=== PATIENT | female | born 1985 | race African-American/Black ===

== ENCOUNTER 2019-02-15 08:31 | Emergency (ER) | payer OTHER, MEDICAID ==
[~2019-02-15] VITALS: Ht 180.3 cm; Wt 81.6 kg
[2019-02-15 08:34] VITALS: Ht 180.3 cm; Wt 81.6 kg
[2019-02-15] MEDS ORDERED: ZONEGRAN100 MG PO (08:57)
[2019-02-15] MEDS ORDERED: LEVAQUIN750 MG PO (08:58)
[2019-02-15] MEDS ORDERED: ZOLOFT25 MG (08:59)
[2019-02-15 09:01] LABS: BASOPHIL % 1.7 % (0-2); PLATELET COUNT 330 x10^3mcL (130-400); RED CELL DISTRIBUTION WIDTH 13.4 % (11.5-14.5)
[2019-02-15 09:17] LABS: CALCIUM 8.1 mg/dL (8.5-10.1); CARBON DIOXIDE 22.4 mmol/L (21-32); CHLORIDE SERUM 109 mmol/L (98-107); CREATININE SERUM 0.8 mg/dL (0.6-1.0); GFR1 > 60 mL/min; GLUCOSE SERUM 89 mg/dL (74-106); POTASSIUM SERUM 3.8 mmol/L (3.5-5.1); SODIUM SERUM 141 mmol/L (136-145)
[2019-02-15 09:21] LABS: T3 TOTAL 1.38 ng/mL
[2019-02-15 09:22] LABS: ALBUMIN 3.6 g/dL (3.4-5.0); ALKALINE PHOSPHATASE 71 U/L (46-116); ALT/SGPT 22 U/L (14-59); AST/SGOT 17 U/L (15-37); BILIRUBIN TOTAL 0.2 mg/dL (0.20-1.00); CHOLESTEROL 134 mg/dL (<200); CHOLESTEROL/HDL RATIO 2.4; HDL CHOLESTEROL 57 mg/dL (40-60); LIPASE 164 IU/L (73-393); TOTAL PROTEIN, SERUM 7.5 g/dL (6.4-8.2); TRIGLYCERIDES 82 mg/dL (<150)
[2019-02-15 09:28] LABS: FREE T4 1.01 ng/dL (0.76-1.46); T4(THYROXINE) 6.2 ug/dL (4.7-13.3)
[2019-02-15 10:24] VITALS: BP 110/78
== END 2019-02-15 10:24 | disposition home or self-care (01) ==
LOC: ED 08:31
PROVIDERS: Specialist
DX: J20.9 Acute bronchitis, unspecified (principal); Z95.0 Presence of cardiac pacemaker; Z98.51 Tubal ligation status
CPT/HCPCS: 36415; 83880; 84439; J7030; J7613; J7644; Q0092